=== PATIENT | male | born 1980 | race Caucasian/White ===

== ENCOUNTER 2020-01-14 13:48 | Inpatient (IN) | payer SELFPAY ==
[~2020-01-14 13:48] MED LIST: Dexamethasone 20 MG/5 ML VIAL ONE; Lidocaine 1% PF 5 ML VIAL ONE; Ondansetron PF 4 MG/2 ML Vial ONE; PROPOFOL 200 MG/20 ML VIAL ONE
[2020-01-14] MEDS ORDERED: Boostrix 0.5 ML VIAL ONE (14:06)
[2020-01-14] MEDS ORDERED: Morphine 4 MG/ML VIAL ONE ×3 (14:06→18:29)
--- NOTE | 2020-01-14 14:21 | RAD ---
XR Chest 1 View Portable HISTORY: Preoperative evaluation COMPARISON: None FINDINGS: The heart size is normal. There is a old healed fracture of the left clavicle with plate an d screws in place. Old healed fracture of the right clavicle is seen. The lungs are well expanded without focal areas of consolidation, pneumothorax or pleural effusions. IMPRESSION: No radiographic evidence of acute cardiopulmonary process.
[2020-01-14] MEDS ORDERED: Morphine 4 MG/ML VIAL SLOW IVP PRN (15:27)
[2020-01-14] MEDS ORDERED: Dextrose 5% in Water 1,000 ML IV PRN (15:27)
[2020-01-14] MEDS ORDERED: Dextrose 50% Abboject 50 ML SYRINGE SLOW IVP PRN (15:27)
[2020-01-14] MEDS ORDERED: Ondansetron PF 4 MG/2 ML Vial IVP PRN (15:27)
[2020-01-14] MEDS ORDERED: CEFAZOLIN 2 GM in Premix Bag 1 BAG IVPB SCH (16:00)
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
[2020-01-14] MEDS ORDERED: Fentanyl 100 MCG/2 ML VIAL ONE ×3 (18:14→21:38)
[2020-01-14] MEDS ORDERED: Sodium Chloride 0.9% 0 ML ONE (18:25)
[2020-01-14] MEDS ORDERED: Lidocaine 1% w/Epinephrine 1:100K 20 ML VIAL ONE (18:25)
[2020-01-14] MEDS ORDERED: Bupivacaine PF 0.5% 30 ML VIAL ONE (18:25)
[2020-01-14] MEDS ORDERED: Bupivacaine 0.25% HCL 30 ML VIAL ONE (18:36)
[2020-01-14] MEDS ORDERED: Lidocaine 1% (PF) 30 ML VIAL ONE (19:23)
[2020-01-14] MEDS ORDERED: Morphine Sulfate 2 MG/ML SYRINGE SLOW IVP PRN (20:38)
[2020-01-14] MEDS ORDERED: Ondansetron HCl/PF 4 MG/2 ML Vial IVP PRN (20:38)
[2020-01-14] MEDS ORDERED: Promethazine HCl 25 MG/ML VIAL SLOW IVP PRN (20:38)
[2020-01-14] MEDS ORDERED: Promethazine HCl 25 MG/ML VIAL IM PRN (20:38)
[2020-01-14] MEDS ORDERED: Morphine 2 MG/ML VIAL SLOW IVP PRN (22:58)
[2020-01-14] MEDS ORDERED: HYDROcodone/Acetaminophen 5/325 mg Tablet PO PRN (22:59)
[2020-01-14 23:08] VITALS: BMI 27.4
[2020-01-14] MEDS: traMADol HCl 50 MG TAB PO SCH ×2 (23:37→23:38)
[2020-01-14] MEDS: Acetaminophen 500 MG TAB PO SCH (23:39)
[2020-01-14] MEDS: Ibuprofen 800 MG TAB PO SCH ×2 (23:39→23:50)
[2020-01-14] MEDS: Senokot S 8.6-50 MG TAB PO SCH (23:43)
[2020-01-14] MEDS: Famotidine/PF 20 mg/2ml Vial SLOW IVP SCH (23:48)
[2020-01-14] MEDS: HYDROcodone/Acetaminophen 5/325 mg Tablet PO PRN (23:48)
[2020-01-14] MEDS: Sodium Chloride 0.9% 1,000 ML IV SCH (23:50)
[2020-01-14] MEDS: Gabapentin 300 MG CAP PO SCH (23:58)
[2020-01-15] MEDS: D5W 1 GM IVPB SCH ×5 (00:50→23:35)
[2020-01-15] MEDS: CEFAZOLIN IVPB SCH ×5 (00:50→23:35)
[2020-01-15] MEDS: Sodium Chloride 0.9% 1,000 ML IV SCH ×2 (03:29→08:59)
[2020-01-15] MEDS: traMADol HCl 50 MG TAB PO SCH ×4 (04:06→21:35)
[2020-01-15] MEDS: Acetaminophen 500 MG TAB PO SCH ×4 (04:07→21:34)
[2020-01-15 06:21] LABS: #Lymphocytes 1.5 thou/uL (1.20-3.40); #Monocytes 0.5 thou/uL (0.11-0.59); #Neutrophils 10.1 thou/uL (1.40-6.50); %Eosinophils 0.1 % (0.0-10.0); %Lymphocytes 12.4 % (21.0-51.0); %Monocytes 3.8 % (0.0-10.0); %Neutrophils 83.7 % (42.0-75.0); Hemoglobin 14.2 g/dL (14.0-18.0); Mean Corpuscular HGB CONC 33.4 g/dL (32.0-36.0); Mean Corpuscular Hemoglobin 29.9 pg (27.0-31.0); Mean Corpuscular Volume 89.6 fL (78.0-98.0); Mean Platelet Volume 7.7 fL (7.4-10.4); Platelet Count 315 thou/uL (130-400); RBC Distribution Width 11.2 % (11.5-14.5); Red Blood Cell (RBC) Count 4.76 mill/uL (4.70-6.10); White Blood Cell (WBC) Count 12.1 thou/uL (4.8-10.8)
[2020-01-15 06:38] LABS: Anion Gap 11 mmol/L (10-20); BUN (Urea Nitrogen) 14 mg/dL (8.9-20.6); Calc. Creatinine Clearance 137 mL/min (70-130); Calcium 8.5 mg/dL (7.8-10.44); Carbon Dioxide 24 mmol/L (22-29); Chloride 106 mmol/L (98-107); Estimated GFR-MDRD Greater than 90; Glucose 137 mg/dL (70-105); Magnesium 1.8 mg/dL (1.6-2.6); Phosphorus 2.7 mg/dL (2.3-4.7); Potassium 4.4 mmol/L (3.5-5.1); Sodium 137 mmol/L (136-145)
[2020-01-15] MEDS: HYDROcodone/Acetaminophen 5/325 mg Tablet PO PRN ×3 (06:44→23:34)
[2020-01-15] MEDS: Senokot S 8.6-50 MG TAB PO SCH ×2 (08:59→21:34)
[2020-01-15] MEDS: Ibuprofen 800 MG TAB PO SCH ×3 (08:59→23:35)
[2020-01-15] MEDS: Gabapentin 300 MG CAP PO SCH ×3 (09:00→21:33)
[2020-01-15] MEDS: Polyethylene Glycol 3350 17 GM Packet PO SCH (09:00)
[2020-01-15] MEDS: Famotidine/PF 20 mg/2ml Vial SLOW IVP SCH ×2 (09:00→21:32)
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
[2020-01-15] MEDS: Cyclobenzaprine 10 MG TAB PO PRN ×2 (10:28→21:43)
[2020-01-16] MEDS: Acetaminophen 500 MG TAB PO SCH ×2 (04:35→08:40)
[2020-01-16] MEDS: traMADol HCl 50 MG TAB PO SCH ×2 (04:36→08:40)
[2020-01-16] MEDS: D5W 1 GM IVPB SCH (06:29)
[2020-01-16] MEDS: CEFAZOLIN IVPB SCH (06:29)
[2020-01-16] MEDS: Senokot S 8.6-50 MG TAB PO SCH (08:36)
[2020-01-16] MEDS: Gabapentin 300 MG CAP PO SCH (08:36)
[2020-01-16] MEDS: Famotidine/PF 20 mg/2ml Vial SLOW IVP SCH (08:36)
[2020-01-16] MEDS: Polyethylene Glycol 3350 17 GM Packet PO SCH (08:36)
[2020-01-16] MEDS: HYDROcodone/Acetaminophen 5/325 mg Tablet PO PRN (08:37)
[2020-01-16] MEDS: Ibuprofen 800 MG TAB PO SCH (08:37)
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
[2020-01-16] MEDS: Cyclobenzaprine 10 MG TAB PO PRN (10:17)
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
[2020-01-16 11:56] VITALS: BP 133/81; TEMP 97.9
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
== END 2020-01-16 12:15 | DRG 906 ==
LOC: ERS 13:48 → SDC 15:27 → EEVIPCON 22:24 → SURG A 22:24
PROVIDERS: ADMIT Surgery; ATTEND Surgery
PROC: 0PC Upper Bones, Extirpation (ICD-10-PCS; principal; 2020-01-14)
PROC: 0X6N0Z1 Detachment at Right Index Finger, High, Open Approach (ICD-10-PCS; 2020-01-14)
PROC: 0PHT34Z Insertion of Internal Fixation Device into Right Finger Phalanx, Percutaneous Approach (ICD-10-PCS; 2020-01-14)
DX: S68.120A Partial traumatic metacarpophalangeal amputation of right index finger, initial encounter (principal); S62.612B Displaced fracture of proximal phalanx of right middle finger, initial encounter for open fracture; S62.614B Displaced fracture of proximal phalanx of right ring finger, initial encounter for open fracture; S62.606B Fracture of unspecified phalanx of right little finger, initial encounter for open fracture; W34.00XA Accidental discharge from unspecified firearms or gun, initial encounter; S19.9XXA Unspecified injury of neck, initial encounter; F90.9 Attention-deficit hyperactivity disorder, unspecified type
CPT/HCPCS: 36415; 71045; 76000; 80048; 83735; 84100; 85025; 88302; 90471; 90715; 96361; 96374; 96376; G0390; J0690; J1100; J2001; J2270; J2405; J2704; J3010; J3490; S0020; S0028

== ENCOUNTER 2020-12-29 10:16 | Emergency (ER) | payer OTHER, SELFPAY ==
[2020-12-29 13:08] LABS: #Lymphocytes 1.5 thou/uL (1.20-3.40); #Monocytes 0.5 thou/uL (0.11-0.59); %Basophils 0.1 % (0.0-1.0); %Eosinophils 0.2 % (0.0-10.0); %Lymphocytes 25.4 % (21.0-51.0); %Monocytes 8.3 % (0.0-10.0); %Neutrophils 66.1 % (42.0-75.0); Hemoglobin 16.8 g/dL (14.0-18.0); Mean Corpuscular HGB CONC 34.4 g/dL (32.0-36.0); Mean Corpuscular Hemoglobin 29.7 pg (27.0-31.0); Mean Corpuscular Volume 86.3 fL (78.0-98.0); Mean Platelet Volume 7.5 fL (7.4-10.4); Platelet Count 162 thou/uL (130-400); RBC Distribution Width 11.5 % (11.5-14.5); Red Blood Cell (RBC) Count 5.65 mill/uL (4.70-6.10)
[2020-12-29 13:29] LABS: Anion Gap 10 mmol/L (10-20); BUN (Urea Nitrogen) 17 mg/dL (8.9-20.6); Calc. Creatinine Clearance 0 mL/min (70-130); Calcium 9.1 mg/dL (7.8-10.44); Carbon Dioxide 29 mmol/L (22-29); Chloride 102 mmol/L (98-107); Glucose 95 mg/dL (70-105); Sodium 137 mmol/L (136-145)
[2020-12-29] MEDS ORDERED: Acetaminophen 500 MG TAB ONE (13:59)
[2020-12-29 14:03] LABS: SARS-CoV-2 NAA Rapid Test DETECTED (NotDetected)
[2020-12-29] MEDS ORDERED: Ketorolac Tromethamine 30 MG/ML VIAL ONE (15:11)
[2020-12-29] MEDS ORDERED: Dexamethasone 4 mg/ml Vial ONE (15:11)
== END 2020-12-29 15:33 ==
LOC: ERS 10:16
DX: U07.1 COVID-19 (principal); J12.82 Pneumonia due to coronavirus disease 2019
CPT/HCPCS: 0240U; 36415; 71045; 80048; 84484; 85025; 93005; 96374; 96375; J1100; J1885